=== PATIENT | male | born 1995 | race Caucasian/White ===

== ENCOUNTER 2020-12-05 16:01 | Emergency (ER) | payer BC, SELFPAY ==
[2020-12-05 16:05] VITALS: BP 147/79; PULSE 72; RESP 21; TEMP 36.8; O2SAT 100; BMI 29.2
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
[2020-12-05 16:56] VITALS: BP 147/79; PULSE 72; RESP 21; TEMP 36.8; O2SAT 100
== END 2020-12-05 16:59 | disposition home or self-care (01) ==
PROVIDERS: Emergency Provider Nurse Practitioner Family
DX: S00.33XA Contusion of nose, initial encounter (principal); S00.83XA Contusion of other part of head, initial encounter; W22.8XXA Striking against or struck by other objects, initial encounter; Y92.73 Farm field as the place of occurrence of the external cause
CPT/HCPCS: 70140; 99202; G0463